=== PATIENT | female | born 1965 | race Caucasian/White ===

== ENCOUNTER → 2016-08-13 | Outpatient (CLI) | payer OTHER ==
[~2016-08-13] MED LIST: ARTIOIN OP; CHOL1CAP57 PO; ENOX1INJ11 SQ; FLUO10CA48 PO; JUICE PLUS PO; MULT-506 PO; PRED10TA PO; VALA1TAB2 PO; VITA400C15 PO; WARF5TAB90 PO
[2016-08-13 18:39] LABS: LYME DISEASE AB IGG NEG (NEG)
[2016-08-13 18:42] LABS: LYME DISEASE AB IGM NEG (NEG)
== END | disposition home or self-care (01) ==
LOC: C.LABBFT 15:27
PROVIDERS: ATTEND Nurse Practitioner
DX: T14.8 Other injury of unspecified body region (principal); W57.XXXA Bitten or stung by nonvenomous insect and other nonvenomous arthropods, initial encounter

== ENCOUNTER 2016-12-01 07:46 | Emergency (ER) | payer OTHER ==
[~2016-12-01] VITALS: Ht 167.6 cm; Wt 75.2 kg
[~2016-12-01 07:46] MED LIST changes: -ARTIOIN OP; -ENOX1INJ11 SQ; -FLUO10CA48 PO; -JUICE PLUS PO; -PRED10TA PO; -VALA1TAB2 PO; -WARF5TAB90 PO
[2016-12-01 07:48] VITALS: TEMP 36.9; Ht 167.6 cm; Wt 75.2 kg
--- NOTE | 2016-12-01 08:10 | EMERGENCY ROOM VISIT NOTE ---
History Report prepared by Nikia: Lulú Rasheed Under the Supervision of: Dr. Tom Valencia M.D. First contact with patient: 07:56 Chief Complaint: NEURO SYMPTOMS Stated Complaint: PAININ GLAND BEHIND RT EAR, PARALIZED RT SIDE FACE Nursing Triage Summary: Pt states yesterday noticed a lump behind right ear, woke up this morning and right side of face "was paralyzed. My mouth feels tingly, like it's asleep. I googled my sx and I think it's Ericson Palsy, but we are heading to a horse show and I wanted to make sure." History of Present Illness The patient is a 51 year old female who presents to the Emergency Room with complaints of sudden neurological symptoms beginning this morning. The patient reports that yesterday she noticed a lump behind her right ear and that this morning she woke up with the right side of her face tingling. The patient reports that she had tick bites that she recently had checked and was found to be negative for lyme disease. She denies having a headache, a sore throat, and weakness of her extremities. The patient also denies recent falls or head injuries. She reports that she has no active medical problems. Source of History: patient Onset: this morning Position: other (right side of face ) Quality: other (neurological symptoms ) Timing: other (sudden) Associated Symptoms: No headache, No sorethroat, No weakness Review of Systems See HPI for pertinent positives & negatives. A total of 10 systems reviewed and were otherwise negative. Past Medical & Surgical Medical Problems: (1) Bilateral breast implants Family History No pertinent family history stated. Social History Smoking Status: Never Smoker Marital Status: Housing Status: lives with family Current/Historical Medications Scheduled Artificial Tears Oph Oint (Lacri-Lube Sop Oph Oint), 0.25-0.5 INCH OP QID Prednisone (Prednisone), 10 MG PO DAILY Valacyclovir Hcl (Valtrex), 1,000 MG PO TID [Juice Plus], 2 CAP PO DAILY Allergies Coded Allergies: No Known Allergies (Unverified , 12/01/16) Physical Exam Vital Signs Date Time Temp Pulse Resp B/P (MAP) Pulse Ox O2 Delivery O2 Flow Rate FiO2 12/01/16 08:25 72 17 152/92 97 12/01/16 07:48 36.9 75 18 144/82 96 Room Air Physical Exam GENERAL: Patient is well appearing and in no acute distress. HEENT: No acute trauma, normocephalic atraumatic, mucous membranes moist, no nasal congestion, no scleral icterus.Slightly increased lymph node just below right ear. NECK: No stridor, no adenopathy, no meningismus, trachea is midline. LUNGS: No dyspnea. Clear to auscultation and equal bilaterally. No wheeze, no rhonchi. HEART: Regular rate and rhythm. No murmurs, rubs, gallops appreciated. ABDOMEN: Soft, nontender, bowel sounds positive, no masses appreciated, no peritonitis. BACK: No midline tenderness, no CVA tenderness EXTREMITIES: Normal motion all extremities, no cyanosis, no edema. NEUROLOGIC: Alert and oriented. Right facial paralysis, slightly able to overcome right upper face with voluntary movement thought significantly weaker than left. Unable to completely close right eye. SKIN: No rash, no jaundice, no diaphoresis. Medical Decision & Procedures Medications Administered Medications (Trade) Dose Ordered Sig/Yelena Route Start Time Stop Time Status Last Admin Dose Admin Prednisone (PredniSONE TAB) 60 mg NOW STAT PO 12/01/16 08:09 12/01/16 08:10 DC 12/01/16 08:23 60 MG Valacyclovir HCl (Valtrex Tab) 1,000 mg NOW ONCE PO 12/01/16 08:15 12/01/16 08:16 DC 12/01/16 08:23 1,000 MG Artificial Tears (Lacri-Lube Oph Oint) 1 appln NOW ONCE OP 12/01/16 08:15 12/01/16 08:16 DC 12/01/16 08:23 1 APPLN ED Course 0757: The patient was evaluated in room B4B. A complete history and physical exam was performed. 0809: Ordered Prednisone 60 mg PO. 0815: Ordered Artificial Tears 1 appln OP, Valtrex Tab 1,000 mg PO. 0823: Reevaluated the patient. Discussed results and discharge instructions: She verbalized understanding and agreement. The patient is ready for discharge. Medical Decision Differentials include: Londono's Palsy, stroke, herpetic cause/viral cause, Lyme disease, amongst others. 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 Notes just had lyme testing which was negative. Stable and breathing comfortably. No rash though given amount of deficit I feel that starting Valtrex, especially given how symptoms started in last 12 hours is reasonable. Will hold doxy and hold further lyme testing given recent negative testing and denies recent tick bites. She will also receive steroids. Unable to fully close eye thus reviewed importance of keeping moist and using patch and symptoms to monitor for in case of ulcer, etc. I suggested Optho eval but she notes she will be out of town over next few weeks on horse show. Reviewed symptoms requiring return. I do not feel this is CVA given both upper and lower face findings and her exam. I feel the node is likely reactive and is not a mass pressing on nerve, but did review returning if increase in size/pain. Medication Reconcilliation Current Medication List: was personally reviewed by me Blood Pressure Screening Patient's blood pressure: Elevated blood pressure Blood pressure disposition: Elevated BP felt to be situational Impression Primary Impression: Londono's palsy Scribe Attestation The scribe's documentation has been prepared under my direction and personally reviewed by me in its entirety. I confirm that the note above accurately reflects all work, treatment, procedures, and medical decision making performed by me. Departure Information Dispostion Home / Self-Care Prescriptions Artificial Tears Oph Oint (Lacri-Lube Sop Oph Oint) Oint 0.25-0.5 INCH OP QID, #1 TUBE TO THE AFFECTED EYE UP TO QID PRN Prov: Tom Valencia M.D. 12/01/16 Valacyclovir Hcl (VALTREX) 1 Gm Tab 1000 MG PO TID for 7 Days, #21 TAB Prov: Tom Valencia M.D. 12/01/16 Prednisone (Prednisone) 10 Mg Tab 10 MG PO DAILY, #45 TAB Take 6 tabs daily for 5 days, then decrease by one tab daily over next 5 days. Prov: Tom Valencia M.D. 12/01/16 Referrals No Doctor, Assigned (PCP) Forms HOME CARE DOCUMENTATION FORM, IMPORTANT VISIT INFORMATION Patient Instructions ED Ericson Palsy, My [facility]
[2016-12-01] MEDS ORDERED: PRED10TA PO (08:15)
[2016-12-01] MEDS ORDERED: VALA1TAB2 PO (08:15)
[2016-12-01] MEDS ORDERED: ARTIOIN OP (08:15)
[2016-12-01] MEDS ORDERED: ARTIFICIAL TEARS OP OINT 3.5 GM TUBE OP ONE (08:15)
[2016-12-01 08:25] VITALS: BP 152/92; PULSE 72; O2SAT 97
[2016-12-17] MEDS ORDERED: JUICE PLUS PO (08:17)
== END 2016-12-01 08:42 | disposition home or self-care (01) ==
LOC: C.EDB 07:49
DX: G51.0 Bell's palsy (principal); Z98.82 Breast implant status

== ENCOUNTER 2016-12-17 19:30 | Emergency (ER) | payer OTHER ==
[~2016-12-17] VITALS: Ht 168.9 cm; Wt 74.3 kg
[~2016-12-17 19:30] MED LIST changes: -ENOX1INJ11 SQ; -FLUO10CA48 PO; -WARF5TAB90 PO
[2016-12-17 19:42] VITALS: TEMP 36.8; Ht 168.9 cm; Wt 74.3 kg
[2016-12-17] MEDS ORDERED: ENOXAPARIN 1 MG/KG SQ STA (20:03)
[2016-12-17] MEDS ORDERED: WARFARIN SOD 5 MG TAB PO STA (20:03)
--- NOTE | 2016-12-17 20:04 | EMERGENCY ROOM VISIT NOTE ---
History Report prepared by Nikia: Harsha iRchardson Under the Supervision of: Dr. Philip Preston M.D. First contact with patient: 19:51 Chief Complaint: LEG PAIN,LEG INJURY Stated Complaint: L LEG THROMBUS History of Present Illness The patient is a 51 year old female who presents to the Emergency Room with complaints of left leg superficial thrombus. 2 weeks ago, the patient had an episode of Londono's Palsy that cleared up after a few days. She then traveled to [place] and back for a horse show. She then decided to get a checkup with her PCP afterward. Prior to this, she was having some left sided calf tenderness. Her PCP scheduled an US procedure that was positive for a thrombus in the leg. She has never had a blood clot before. She denies any other symptoms. Source of History: patient Onset: last week Position: leg (left) Symptom Intensity: Superficial Quality: other (Thrombus) Timing: constant Note: She has left calf tenderness. She denies any other symptoms. Review of Systems See HPI for pertinent positives & negatives. A total of 10 systems reviewed and were otherwise negative. Past Medical & Surgical Medical Problems: (1) Bilateral breast implants Family History Omitted secondary to the patient's pain. Social History Smoking Status: Never Smoker Smokeless Tobacco Use: No Drug Use: none Marital Status: Housing Status: lives with family Occupation Status: employed Current/Historical Medications Scheduled Artificial Tears Oph Oint (Lacri-Lube Sop Oph Oint), 0.25-0.5 INCH OP QID Enoxaparin Sodium (Lovenox), 80 MG SQ Q12 Fluoxetine (Prozac), 10 MG PO DAILY Warfarin Sodium (Coumadin), 5 MG PO DAILY [Juice Plus], 2 CAP PO DAILY Allergies Coded Allergies: No Known Allergies (Unverified , 12/01/16) Physical Exam Vital Signs Date Time Temp Pulse Resp B/P (MAP) Pulse Ox O2 Delivery O2 Flow Rate FiO2 12/17/16 21:12 76 17 141/85 97 12/17/16 19:42 36.8 60 18 164/95 98 Room Air Physical Exam GENERAL: Patient is a healthy-appearing well-nourished female HEAD: Normocephalic atraumatic EYES: Ocular movements intact pupils equal and react to light OROPHARYNX mucous membranes are moist no exudates present no erythema or edema present NECK: Supple no nuchal rigidity CHEST: Good equal expansion LUNGS: Clear and equal to auscultation CARDIAC: Normal S1 and S2 ABDOMEN: Soft nontender no guarding BACK: No CVA tenderness EXTREMITIES: No pain upon palpation normal muscle strength in all groups no clubbing cyanosis or edema NEURO: Patient is following commands and answering questions appropriately. Alert and oriented x3 Cranial Nerves 2-12 grossly intact Medical Decision & Procedures Laboratory Results Test 12/17/16 20:17 12/17/16 20:22 Prothrombin Time 9.9 SECONDS (9.0-12.0) Prothromb Time International Ratio 0.9 (0.9-1.1) Activated Partial Thromboplast Time 25.4 SECONDS (21.0-31.0) Partial Thromboplastin Ratio 1.0 Labs reviewed by ED physician. Medications Administered Medications (Trade) Dose Ordered Sig/Yelena Route Start Time Stop Time Status Last Admin Dose Admin Miscellaneous (Lovenox Teaching Kit) 1 ea PRN PRN N/A 12/17/16 20:15 12/17/16 21:37 DC 12/17/16 21:00 1 EA Warfarin Sodium (Coumadin Tab) 10 mg NOW STAT PO 12/17/16 20:03 12/17/16 20:04 DC 12/17/16 21:00 10 MG Enoxaparin Sodium (Lovenox Inj) 70 mg NOW ONCE SQ 12/17/16 20:15 12/17/16 20:16 DC 12/17/16 20:59 70 MG ED Course 1950: Past medical records reviewed. The patient was evaluated in room C12. A complete history and physical examination was performed. 2002: Ordered Coumadin Tab 10 mg PO, Enoxaparin Sodium 1 ea SQ 2015: Lovenox Inj 70 mg SQ 0: Upon reexamination the patient is resting. I discussed results and treatment plan with the patient. She verbalizes agreement and understanding. The patient is ready for discharge. Medical Decision Differential diagnosis: Etiologies such as DVT, musculoskeletal, infection, joint effusion, trauma, lymphedema, idiopathic, CHF, as well as others were entertained. This is a 51-year-old female that presents emergency department with an extensive superficial venous thrombosis. Because this is so large in size and using shared medical decision making with both the patient as well as the patient's primary care physician, the decision was made place the patient on Lovenox as well as Coumadin. In addition the patient also has a upcoming trip to [place] and I feel that the patient should be anticoagulated. A hypercoagulability workup was initiated. The patient will follow-up for these results with her primary care physician. She will be placed on Lovenox twice a day and started on Coumadin. Patient will follow-up with her primary care physician for her Coumadin levels. Medication Reconcilliation Current Medication List: was personally reviewed by me Blood Pressure Screening Patient's blood pressure: Elevated blood pressure Blood pressure disposition: Referred to PCP Impression Primary Impression: Superficial vein thrombosis Scribe Attestation The scribe's documentation has been prepared under my direction and personally reviewed by me in its entirety. I confirm that the note above accurately reflects all work, treatment, procedures, and medical decision making performed by me. Departure Information Dispostion Home / Self-Care Prescriptions Warfarin Sodium (COUMADIN) 5 Mg Tab 5 MG PO DAILY for 14 Days, #14 TAB Prov: Philip Preston MD 12/17/16 Enoxaparin Sodium (LOVENOX) 80 Mg/0.8 Ml Inj 80 MG SQ Q12 for 5 Days, #10 SYR Prov: Philip Preston MD 12/17/16 Referrals No Doctor, Assigned (PCP) Forms HOME CARE DOCUMENTATION FORM, IMPORTANT VISIT INFORMATION, School Instructions, Work Instructions Patient Instructions Coumadin, ED Phlebitis Superficial, Enoxaparin injection, My [facility] Additional Instructions Need follow up with PCP for INR (Coumadin) levels You were found to have an elevated blood pressure today (>120 sytolic or >90 diastolic). Per medicare guidelines, you need to follow up with this blood pressure screening with your Primary Care Physician (PCP). For a new PCP call [phone]. Take 600 mg Ibuprofen every 6 hours You have been examined and treated today on an emergency basis only. This is not a substitute for, or an effort to provide, complete comprehensive medical care. It is impossible to recognize and treat all injuries or illnesses in a single emergency department visit. It is therefore important that you follow up closely with your PCP. Call as soon as possible for an appointment. Thank you for your time and consideration. I look forward to speaking with you again soon. Please don't hesitate to call us if you have any questions.
[2016-12-17] MEDS ORDERED: LOVENOX TEACHING KIT PRN (20:15)
[2016-12-17] MEDS ORDERED: ENOXAPARIN 80 MG/0.8 ML SYR SQ ONE (20:15)
[2016-12-17] MEDS ORDERED: ENOX1INJ11 SQ (20:17)
[2016-12-17] MEDS ORDERED: WARF5TAB90 PO (20:17)
[2016-12-17 20:56] LABS: INR 0.9 (0.9-1.1); PROTHROMBIN TIME (PATIENT) 9.9 SECONDS (9.0-12.0)
[2016-12-17 21:12] VITALS: BP 141/85; PULSE 76; O2SAT 97
[2016-12-17] MEDS ORDERED: FLUO10CA48 PO (21:44)
[2016-12-22 16:33] LABS: ANTITHROMBINIII ACTIVITY** 97 % activity (80-120); B2 GLYCOPROTEIN IGA <9 SAU (<=20); B2 GLYCOPROTEIN IGG <9 SGU (<=20); B2 GLYCOPROTEIN IGM <9 SMU (<=20); LUPUS ANTICOAGULANT** TC36573X Negative (Negative); PROTEIN C ACTIVITY** TC 1777X 82 % (70-180); PROTEIN S ACT(FUNCT)**1779X 88 % (60-140)
== END 2016-12-17 21:13 | disposition home or self-care (01) ==
LOC: C.EDB 19:31 → C.EDC 21:13
DX: I82.812 Embolism and thrombosis of superficial veins of left lower extremity (principal); Z79.899 Other long term (current) drug therapy; Z98.82 Breast implant status

== ENCOUNTER → 2016-12-17 | Outpatient (CLI) | payer OTHER ==
[~2016-12-17] MED LIST changes: +ARTIOIN OP; -CHOL1CAP57 PO; +ENOX1INJ11 SQ; +FLUO10CA48 PO; +JUICE PLUS PO; -MULT-506 PO; +PRED10TA PO; -VITA400C15 PO; +WARF5TAB90 PO
[2016-12-17 18:42] LABS: BASO % 0.4 %; BASO ABS # 0.03 K/uL (0-0.2); COMPLETE YES; EOS % 2.5 %; HEMATOCRIT 41.7 % (37-47); IG% 0.4 %; LYMPH % 28.4 %; LYMPH ABS # 2.25 K/uL (1.2-3.4); MEAN CELL VOLUME 92.9 fL (80-100); MEAN CORPUSCULAR HEMOGLOBIN 32.3 pg (25-34); MEAN CORPUSCULAR HGB CONC 34.8 g/dl (32-36); MEAN PLATELET VOLUME 9.6 fL (7.4-10.4); MONO % 8.7 %; NEUT % 59.6 %; PLATELET COUNT 235 K/uL (130-400); RED BLOOD COUNT 4.49 M/uL (4.2-5.4); WHITE BLOOD COUNT 7.92 K/uL (4.8-10.8)
[2016-12-17 19:06] LABS: ALT/SGPT 14 U/L (12-78); AST/SGOT 8 U/L (15-37); BLOOD UREA NITROGEN 16 mg/dl (7-18); BUN/CREATININE RATIO 18.9 (10-20); CALCIUM 8.6 mg/dl (8.5-10.1); CARBON DIOXIDE 29 mmol/L (21-32); CHLORIDE 108 mmol/L (98-107); CREATININE 0.84 mg/dl (0.60-1.20); GLUCOSE 86 mg/dl (70-99); SODIUM 140 mmol/L (136-145)
[2016-12-17 19:07] LABS: ALB/GLOB RATIO 0.8 (0.9-2); ALKALINE PHOSPHATASE 49 U/L (45-117); CHOLESTEROL 177 mg/dl (0-200); CHOLESTEROL/HDL RATIO 2.2; HDL CHOLESTEROL 79 mg/dl; LDL CHOLESTEROL CALCULATED 66 mg/dl; TRIGLYCERIDES 159 mg/dl (0-150); VERY LOW DENSITY LIPOPROT CALC 32 mg/dl
--- NOTE | 2016-12-17 19:18 | DIAGNOSTIC IMAGING REPORT ---
BILATERAL LOWER EXTREMITY VENOUS DOPPLER HISTORY: M79.662 Tenderness of left calf COMPARISON STUDY: None. FINDINGS: There is normal compressibility, flow, and augmentation within the left lower extremity deep venous system. There is occlusive thrombus within the left greater saphenous vein extending from the mid thigh to the proximal calf. Additionally, thrombus is seen within the superficial vein within the posterior calf suggesting the lesser saphenous vein. The common femoral greater saphenous vein confluence is patent. IMPRESSION: 1. No sonographic evidence of deep venous thrombosis within the left lower extremity. 2. Superficial venous thrombosis involves the greater saphenous vein extending from the mid thigh to the calf. Additional thrombus is seen within the lesser saphenous vein. Electronically signed by: Lamonte Silverman M.D. 12/17/2016 7:17 PM Dictated Date/Time: 12/17/2016 7:14 PM
[2016-12-17 20:31] LABS: LYME DISEASE AB IGG NEG (NEG)
[2016-12-17 20:41] LABS: LYME DISEASE AB IGM EQUIVOCAL (NEG)
[2016-12-22 11:08] LABS: 18KDIGG BAND NONREACTIVE (NONREACTIVE); 23KDIGG BAND NONREACTIVE (NONREACTIVE); 23KDIGM BAND REACTIVE (NONREACTIVE); 28KDIGG BAND NONREACTIVE (NONREACTIVE); 30KDIGG BAND NONREACTIVE (NONREACTIVE); 39KDIGG BAND NONREACTIVE (NONREACTIVE); 39KDIGM BAND NONREACTIVE (NONREACTIVE); 41KDIGG BAND REACTIVE (NONREACTIVE); 41KDIGM BAND REACTIVE (NONREACTIVE); 45KDIGG BAND NONREACTIVE (NONREACTIVE); 58KDIGG BAND NONREACTIVE (NONREACTIVE); 66KDIGG BAND REACTIVE (NONREACTIVE); 93KDIGG BAND NONREACTIVE (NONREACTIVE)
== END | disposition home or self-care (01) ==
LOC: C.ULTR 17:27
PROVIDERS: ATTEND Nurse Practitioner
DX: M79.662 Pain in left lower leg (principal); G51.0 Bell's palsy; E78.5 Hyperlipidemia, unspecified; I82.812 Embolism and thrombosis of superficial veins of left lower extremity

== ENCOUNTER → 2017-01-28 | Outpatient (CLI) | payer OTHER ==
[~2017-01-28] MED LIST changes: +FLUO10CA48 PO; -PRED10TA PO
--- NOTE | 2017-01-28 16:30 | DIAGNOSTIC IMAGING REPORT ---
LEFT LOWER EXTREMITY VENOUS DOPPLER HISTORY: 80.00 Superficial thrombophlebitis of leg Please schedule to be d COMPARISON STUDY: Left leg venous Doppler 12/17/2016. FINDINGS: There is normal compressibility, flow, and augmentation within the left lower extremity deep venous system. There is again noted thrombus throughout the majority of the left greater saphenous vein consistent with a superficial thrombus. This is stable slightly improved compared the prior study. IMPRESSION: No DVT within the left lower extremity. Stable to slightly improved superficial thrombus throughout the majority of the left greater saphenous vein. Electronically signed by: Alcides Duque M.D. 01/28/2017 4:29 PM Dictated Date/Time: 01/28/2017 4:27 PM
== END | disposition home or self-care (01) ==
LOC: C.ULTR 15:33
PROVIDERS: ATTEND Nurse Practitioner
DX: I82.812 Embolism and thrombosis of superficial veins of left lower extremity (principal)

== ENCOUNTER → 2017-03-29 | Outpatient (CLI) | payer OTHER ==
--- NOTE | 2017-04-01 07:49 | MAMMOGRAPHY REPORT ---
BILATERAL DIGITAL SCREENING MAMMOGRAM WITH CAD: 03/29/2017 CLINICAL HISTORY: Patient presents for routine screening. S/P bilateral augmentation. TECHNIQUE: Current study was also evaluated with a Computer Aided Detection (CAD) system. Bilateral CC and MLO views including implant displaced views were obtained. COMPARISON: Comparison is made to exams dated: 03/28/2016 mammogram, 03/25/2015 mammogram, 03/24/2014 m ammogram, 03/23/2013 mammogram, 01/28/2012 mammogram, and 04/17/2011 mammogram - [facility]. BREAST COMPOSITION: The tissue of both breasts is heterogeneously dense, which may obscure small mas ses. FINDINGS: No suspicious masses, calcifications, or areas of architectural distortion are noted in ei ther breast. There has been no significant interval change compared to prior exams. Bilateral subpec poli saline implants are intact. IMPRESSION: ACR BI-RADS CATEGORY 2: BENIGN There is no mammographic evidence of malignancy. A 1 year screening mammogram is recommended. The pa tient will receive written notification of the results. Approximately 10% of breast cancers are not detected with mammography. A negative mammographic report should not delay biopsy if a clinically suggestive mass is present. Trupti Prieto M.D. ah/:03/29/2017 15:12:32 Licensing Worker: Loan KNIGHTR, M, [facility] letter sent: Normal 1/2 BI-RADS Code: ACR BI-RADS Category 2: Benign
== END | disposition home or self-care (01) ==
LOC: C.MAMM 14:32
PROVIDERS: ATTEND Obstetrics & Gynecology
DX: Z12.31 Encounter for screening mammogram for malignant neoplasm of breast (principal); Z98.82 Breast implant status

== ENCOUNTER 2019-02-19 08:37 | Observation (INO) ==
--- NOTE | 2019-02-19 10:09 | XRay Report ---
XR chest 1V portable CLINICAL HISTORY: Dyspnea COMPARISON STUDY: Chest radiograph February 14, 2019. FINDINGS: Lung volumes are normal. Lungs are clear. There is no pneumothorax or pleural effusion. Car diac size is normal. Mediastinal contours are normal. There is no evidence for pulmonary edema. Incid ental note is made of multiple old, healed left rib fractures. IMPRESSION: No acute cardiopulmonary findings. Electronically signed by: Mahendra Sevilla M.D. 02/19/2019 10:08 AM
[2019-02-19 10:47] LABS: Basophils # (auto) 0.02 K/uL (0-0.2); Basophils % (auto) 0.3 %; Eosinophils # (auto) 0.02 K/uL (0-0.5); Eosinophils % (auto) 0.3 %; Hemoglobin 15.5 g/dL (12.0-16.0); Immature Granulocytes # (auto) 0.01 K/uL (0.00-0.02); Immature Granulocytes % (auto) 0.2 %; Lymphocytes # (auto) 1.29 K/uL (1.2-3.4); Lymphocytes % (auto) 22.2 %; Mean Corpuscular Hemoglobin 32.4 pg (25-34); Mean Corpuscular Hgb Conc 34.4 g/dL (32-36); Mean Corpuscular Volume 94.1 fL (80-100); Mean Platelet Volume 9.4 fL (7.4-10.4); Monocytes # (auto) 0.52 K/uL (0.11-0.59); Neutrophils # (auto) 3.95 K/uL (1.4-6.5); Platelet Count 315 K/uL (130-400); RDW Coefficient of Variation 12.6 % (11.5-14.5); RDW Standard Deviation 43.3 fL (36.4-46.3); Red Blood Count 4.78 M/uL (4.2-5.4); White Blood Count 5.81 K/uL (4.8-10.8)
[2019-02-19 10:57] LABS: Alanine Aminotransferase 14 U/L (12-78); Aspartate Aminotransferase 8 U/L (15-37); BUN Creatinine Ratio 10.3 (10-20); Blood Urea Nitrogen 9 mg/dl (7-18); Calcium 9.5 mg/dl (8.5-10.1); Carbon Dioxide 31 mmol/L (21-32); Chloride 104 mmol/L (98-107); Creatinine Clr Calc Pharmacy 73.4 ml/min; Est GFR (Non-African American) 71.6; Glucose 117 mg/dl (70-99); Magnesium 2.3 mg/dl (1.8-2.4); Potassium 3.9 mmol/L (3.5-5.1); Sodium 138 mmol/L (136-145)
[2019-02-19 11:02] LABS: Alkaline Phosphatase 77 U/L (45-117); Bilirubin,Total 0.6 mg/dl (0.2-1); Globulin 4.2 gm/dl (2.5-4.0); Phosphorus 2.1 mg/dl (2.5-4.9); Total Protein 8.2 gm/dl (6.4-8.2); Troponin I < 0.015 ng/ml (0-0.045)
[2019-02-19 11:05] LABS: Follicle Stimulating Hormone 71.46 IU/L; Luteinizing Hormone 58.61 IU/L
[2019-02-19] MEDS ORDERED: LORazepam 0.5 MG TAB PO STA (12:10)
--- NOTE | 2019-02-19 12:46 | Emergency Department Note ---
Entered by Pepito Yip acting as a scribe for Fabiola Douglass DO History of Present Illness General Chief complaint: Shortness of Breath/Dyspnea Stated complaint: SOB, TINGLING Time Seen by Provider: 02/19/19 09:10 Source: patient History of Present Illness Provider complaint: Shortness of breath Onset (ago): month(s) 2 Location: chest Severity: similar to prior episodes Pain Consistency: + intermittent Quality: + other (Tingling) Associated symptoms: + denies other symptoms (Lightheadedness), + shortness of b reath and + weakness; no chest pain The patient is a 54 year old female who presents to the Emergency Room with complaints of intermittent episodes of dizziness that started about 2 months ago. The patient states that during the spells she gets shaky and short of breath. She also endorses some tingling throughout her body and generalized weakness, but denies any falls or trauma. The patient also denies any chest pain or lightheadedness during the incident. The patient reports that since the onset of these episodes she has been periodically waking up in the middle of the night with similar symptoms. The patient adds that yesterday her had shoulder surgery which she was very anxious about. The patient also mentioned that for the past month she has been self-medicating each night with Whiskey so that she can sleep. The patient is adamant that she does not drink a lot each night. The patient also has some passive suicidal ideation, stating in triage that if she gets discharged today she does not know how long she can live like this. The patient has does not currently have a therapist. Patient states she does travel a lot. Home Medications Home Medications Medication Instructions Recorded Confirmed Type cetirizine [Zyrtec] 10 mg PO DAILY PRN 02/14/19 02/19/19 History fluoxetine 10 mg PO QAM 02/19/19 02/19/19 History Allergies Allergy/AdvReac Type Severity Reaction Status Date / Time No Known Allergies Allergy Unverified 02/19/19 09:18 Past Med/Surg History Medical History Collapsed lung (Resolved) Dyslipidemia Depression with anxiety Seasonal allergies Bilateral breast implants (Resolved 07/15/12) Family History Other No pertinent family history in first degree relatives Social History Preferred Language: Sinhala Communication Ability: Effective 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 and A total of 10 systems reviewed and were otherwise negative Physical Exam Vital Signs Vital Signs - 24 hr 02/19/19 08:39 02/19/19 08:56 02/19/19 10:00 Temperature 98.1 F Temperature Source Oral Sepsis Recent Fever Within 48 Hours No Sepsis Action Taken by Nursing No Action Required Pulse Rate 83 82 Pulse Rate [Apical] 82 Pulse Rate [Exercises] Pulse Rate [Recovery] Pulse Rate [Resting] Pulse Rate from SpO2 Sensor Pulse Rhythm Regular Regular Pulse Rhythm [Apical] Regular Pulse Strength Normal Pulse Strength [Apical] Normal Respiratory Rate 20 20 Respiratory Rate [Exercises] Respiratory Rate [Recovery] Respiratory Rate [Resting] Respiratory Effort / Characteristics Non-Labored Spontaneous Non-Labored Spontaneous Non-Labored Spontaneous Respiratory Depth Normal Normal Normal Respiratory Pattern Regular Regular Regular Blood Pressure 140/74 Blood Pressure [Right Arm] 143/91 H Blood Pressure Mean 96 Blood Pressure Mean [Right Arm] 108 Blood Pressure Position Sitting Blood Pressure Position [Right Arm] Sitting Pulse Oximetry 99 97 Pulse Oximetry [Exercises] Pulse Oximetry [Recovery] Pulse Oximetry [Resting] Oxygen Delivery Method Room Air Room Air Room Air 02/19/19 10:32 02/19/19 11:00 02/19/19 11:30 Temperature Temperature Source Sepsis Recent Fever Within 48 Hours Sepsis Action Taken by Nursing Pulse Rate 91 H 72 Pulse Rate [Apical] 85 Pulse Rate [Exercises] Pulse Rate [Recovery] Pulse Rate [Resting] Pulse Rate from SpO2 Sensor 72 Pulse Rhythm Pulse Rhythm [Apical] Regular Pulse Strength Pulse Strength [Apical] Normal Respiratory Rate 20 17 17 Respiratory Rate [Exercises] Respiratory Rate [Recovery] Respiratory Rate [Resting] Respiratory Effort / Characteristics Non-Labored Spontaneous Respiratory Depth Normal Respiratory Pattern Regular Blood Pressure 151/96 H 139/89 Blood Pressure [Right Arm] 134/79 Blood Pressure Mean 114 105 Blood Pressure Mean [Right Arm] 97 Blood Pressure Position Blood Pressure Position [Right Arm] Sitting Pulse Oximetry 97 96 Pulse Oximetry [Exercises] Pulse Oximetry [Recovery] Pulse Oximetry [Resting] Oxygen Delivery Method Room Air Room Air 02/19/19 12:20 02/19/19 12:25 02/19/19 12:30 Temperature Temperature Source Sepsis Recent Fever Within 48 Hours Sepsis Action Taken by Nursing Pulse Rate 72 67 Pulse Rate [Apical] Pulse Rate [Exercises] 126 H Pulse Rate [Recovery] 85 Pulse Rate [Resting] 92 H Pulse Rate from SpO2 Sensor 72 Pulse Rhythm Pulse Rhythm [Apical] Pulse Strength Pulse Strength [Apical] Respiratory Rate 17 14 Respiratory Rate [Exercises] 30 H Respiratory Rate [Recovery] 22 Respiratory Rate [Resting] 18 Respiratory Effort / Characteristics Respiratory Depth Respiratory Pattern Blood Pressure 145/83 H 114/81 Blood Pressure [Right Arm] Blood Pressure Mean 103 92 Blood Pressure Mean [Right Arm] Blood Pressure Position Blood Pressure Position [Right Arm] Pulse Oximetry 97 97 Pulse Oximetry [Exercises] 85 L Pulse Oximetry [Recovery] 99 Pulse Oximetry [Resting] 95 Oxygen Delivery Method Room Air Room Air Room Air GENERAL: alert, anxious appearing, well nourished, no distress, non-toxic EYE EXAM: normal conjunctiva, PERRL and EOM's grossly intact OROPHARYNX: no exudate, no erythema, lips, buccal mucosa, and tongue normal and mucous membranes are moist NECK: supple, no nuchal rigidity, no adenopathy, non-tender LUNGS: Clear to auscultation. Normal chest wall mechanics, no w/r/r HEART: no murmurs, S1 normal and S2 normal ABDOMEN: abdomen soft, non-tender, normo-active bowel sounds, no masses, no rebound or guarding. BACK: Back is symmetrical on inspection and there is no deformity, no midline tenderness, no CVA tenderness. SKIN: no rashes and no bruising UPPER EXTREMITIES: upper extremities are grossly normal. FROM, nml pulses b/l. LOWER EXTREMITIES: No pitting edema. FROM, nml pulses b/l. NEURO EXAM: Normal sensorium, cranial nerves II-XII grossly intact, normal speech, no gross weakness of arms, no gross weakness of legs. Course 0915: Past medical records reviewed. The patient was evaluated in room B07 by the resident Dr. Givens, and a complete history and physical examination were performed. I then performed my own assessment of the patient. 1103: I reevaluated and updated the patient on results. I also spoke to the psych vocational case manager who is going to evaluate the patient. 1205: Patient here markedly dyspneic with exertion, oxygen saturations dropped to 84% and patient became acutely tachycardic. I reassessed the patient and she is resting now comfortably in bed. We discussed the different treatment options and she agreed to stay. 1245: I spoke to Dr. Lashae Sanchez [facility] Hospitalist about the patient's case. He is going to accept the patient for further evaluation. Consultations Consultation #1: I spoke to Dr. Bhardwaj [facility] Hospitalist about the patient's case. He is going to accept the patient for further evaluation. Time: 12:45 Administered Medications Enoxaparin Sodium (Lovenox) 40 mg SQ Q24H [facility] Stop: 03/21/19 15:59 Last Admin: 02/20/19 16:53 Dose: Not Given Documented by: [id number] Admin: 02/19/19 15:55 Dose: Not Given Documented by: [id number] Fluoxetine HCl (Prozac) 10 mg PO QAM [facility] Stop: 03/22/19 08:59 Last Admin: 02/20/19 07:56 Dose: 10 mg Documented by: [id number] Ioversol (Optiray 320 125ml) 120 ml IV ONCE PRN PRN Reason: Interaction Checking Stop: 02/23/19 14:28 Last Admin: 02/19/19 14:29 Dose: 120 ml Documented by: [id number] Lorazepam (Ativan) 0.5 mg PO Q4H PRN PRN Reason: Anxiety Stop: 03/21/19 17:20 Last Admin: 02/20/19 17:34 Dose: 0.5 mg Documented by: [id number] Admin: 02/20/19 13:31 Dose: 0.5 mg Documented by: [id number] Admin: 02/20/19 09:08 Dose: 0.5 mg Documented by: [id number] Admin: 02/20/19 04:21 Dose: 0.5 mg Documented by: [id number] Admin: 02/19/19 23:10 Dose: 0.5 mg Documented by: [id number] Admin: 02/19/19 18:06 Dose: 0.5 mg Documented by: [id number] Discontinued Medications Influenza Virus Vaccine Quadrival (Flucelvax Quad Vaccine) 0.5 ml IM .ONCE ONE Stop: 02/19/19 15:16 Last Admin: 02/19/19 20:20 Dose: 0.5 ml Documented by: [id number] Lorazepam (Ativan) 0.5 mg PO NOW STA Stop: 02/19/19 12:11 Last Admin: 02/19/19 12:27 Dose: 0.5 mg Documented by: [id number] Medical Decision Making Differential Diagnosis Differential diagnoses includes but is not limited to pneumonia, bronchitis, COPD/Asthma exacerbation, pneumothorax, pulmonary embolism, congestive heart failure, acute coronary syndrome, amongst others. Medical Records Attestation: I reviewed the patient's medical records. Home Medications Current Medication List: was personally reviewed by me Laboratory Data Attestation: I reviewed the patient's lab results. Result diagrams: 02/19/19 08:55 02/19/19 08:55 Lab Results 02/19/19 02/19/19 02/19/19 Range/Units 08:55 08:55 08:55 WBC 5.81 (4.8-10.8) K/uL RBC 4.78 (4.2-5.4) M/uL Hgb 15.5 (12.0-16.0) g/dL Hct 45.0 (37-47) % MCV 94.1 (80-100) fL MCH 32.4 (25-34) pg MCHC 34.4 (32-36) g/dL RDW Std Deviation 43.3 (36.4-46.3) fL RDW Coeff of Keegan 12.6 (11.5-14.5) % Plt Count 315 (130-400) K/uL MPV 9.4 (7.4-10.4) fL Immature Gran % (Auto) 0.2 % Neut % (Auto) 68.0 % Lymph % (Auto) 22.2 % Adair % (Auto) 9.0 % Eos % (Auto) 0.3 % Baso % (Auto) 0.3 % Immature Gran # (Auto) 0.01 (0.00-0.02) K/uL Neut # (Auto) 3.95 (1.4-6.5) K/uL Lymph # (Auto) 1.29 (1.2-3.4) K/uL Adair # (Auto) 0.52 (0.11-0.59) K/uL Eos # (Auto) 0.02 (0-0.5) K/uL Baso # (Auto) 0.02 (0-0.2) K/uL Sodium Cancelled Potassium Cancelled Chloride Cancelled Carbon Dioxide Cancelled Anion Gap Cancelled BUN Cancelled Creatinine Cancelled Est Cr Clr Drug Dosing Cancelled Est GFR ( Amer) Cancelled Est GFR (Non-Af Amer) Cancelled BUN/Creatinine Ratio Cancelled Glucose Cancelled Calcium Cancelled Phosphorus Cancelled Magnesium Cancelled Total Bilirubin Cancelled AST Cancelled ALT Cancelled Alkaline Phosphatase Cancelled Troponin I (0-0.045) ng/ml Total Protein Cancelled Albumin Cancelled Globulin Cancelled Albumin/Globulin Ratio Cancelled FSH IU/L Luteinizing Hormone IU/L 02/19/19 02/19/19 Range/Units 08:55 08:55 WBC (4.8-10.8) K/uL RBC (4.2-5.4) M/uL Hgb (12.0-16.0) g/dL Hct (37-47) % MCV (80-100) fL MCH (25-34) pg MCHC (32-36) g/dL RDW Std Deviation (36.4-46.3) fL RDW Coeff of Keegan (11.5-14.5) % Plt Count (130-400) K/uL MPV (7.4-10.4) fL Immature Gran % (Auto) % Neut % (Auto) % Lymph % (Auto) % Adair % (Auto) % Eos % (Auto) % Baso % (Auto) % Immature Gran # (Auto) (0.00-0.02) K/uL Neut # (Auto) (1.4-6.5) K/uL Lymph # (Auto) (1.2-3.4) K/uL Adair # (Auto) (0.11-0.59) K/uL Eos # (Auto) (0-0.5) K/uL Baso # (Auto) (0-0.2) K/uL Sodium 138 Potassium 3.9 Chloride 104 Carbon Dioxide 31 Anion Gap 3.0 BUN 9 Creatinine 0.92 Est Cr Clr Drug Dosing 73.4 Est GFR ( Amer) 83.0 Est GFR (Non-Af Amer) 71.6 BUN/Creatinine Ratio 10.3 Glucose 117 H Calcium 9.5 Phosphorus 2.1 L Magnesium 2.3 Total Bilirubin 0.6 AST 8 L ALT 14 Alkaline Phosphatase 77 Troponin I < 0.015 (0-0.045) ng/ml Total Protein 8.2 Albumin 4.0 Globulin 4.2 H Albumin/Globulin Ratio 1.0 FSH 71.46 IU/L Luteinizing Hormone 58.61 IU/L Imaging Data Radiologist's Impression: Radiology results as stated below per my review and the radiologist's interpretation: XR chest 1V portable CLINICAL HISTORY: Dyspnea COMPARISON STUDY: Chest radiograph February 14, 2019. FINDINGS: Lung volumes are normal. Lungs are clear. There is no pneumothorax or pleural effusion. Cardiac size is normal. Mediastinal contours are normal. There is no evidence for pulmonary edema. Incidental note is made of multiple old, healed left rib fractures. IMPRESSION: No acute cardiopulmonary findings. Electronically signed by: Mahendra Sevilla M.D. 02/19/2019 10:08 AM ECG Data Attestation: I personally reviewed and interpreted this ECG as follows: Indication: SOB/dyspnea Rate (beats per minute): 74 Rhythm: normal sinus ECG Dudley: Normal ECG ST segments: Normal ST segments ECG Findings: Other (Normal intervals) Blood Pressure Blood Pressure Findings: Elevated blood pressure Blood Pressure Disposition: further management by hospitalist MDM Narrative Patient here well-appearing despite complaints. Unclear etiology of her dyspnea and anxiety. Patient was hemodynamically stable and labs reassuring. I did review her visit from over the weekend which was reassuring also. Concern given patient's worsening symptoms and upon ambulatory trial pronounced tachycardia, hypoxia, and increased work of breathing. Patient agreement with plan for additional inpatient evaluation. Case discussed with hospitalist for additional evaluation and treatment. No overt risk factors for ACS, no clinical exam findings for CHF. I do not suspect occult infectious etiology. I do not suspect other vascular pathology. Impression & Plan Acute dyspnea, Hypoxia, Lightheadedness Discharge Plan Visit Data *Final* Discharge Date/Time: 02/19/19 13:44 Chief Complaint: Shortness of Breath/Dyspnea Stated Complaint: SOB, TINGLING ED Provider: Fabiola Douglass ED Midlevel Provider: Navdeep Givens Discharge Problem: Acute dyspnea, Hypoxia, Lightheadedness Patient Disposition: Admitted As Inpatient Discharge Instructions Interventions: ED Discharge Assessment Last Done: 02/19/19 13:44 The scribe's documentation has been prepared under my direction and personally reviewed by me in its entirety. I confirm that the note above accurately reflects all work, treatment, procedures, and medical decision making performed by me.
--- NOTE | 2019-02-19 13:09 | History & Physical Report ---
Date of Service February 19, 2019 Assessment & Plan (1) Acute dyspnea: Check echocardiogram. Monitor on telemetry floor. Appears to be secondary to anxiety. Does not appear to be any cardiac or pulmonary etiology. (2) Lightheadedness: Check orthostatics (3) Hypoxia: Monitor pulse ox closely. (4) Dizziness: (5) Depression with anxiety: Continue Prozac. We will add Ativan PRN basis. Consider psychiatric consultation if symptoms does not improve. Present on Admission?: Yes History of Present Illness Chief Complaint: Anxiety and shortness of breath and dizzy Primary Care Provider: MILTON Reza The patient is 54 year old female who presents to the Emergency Room with complaints of intermittent episodes of dizziness that started about 2 months ago. The patient states that during the spells she gets shaky and short of breath. She also endorses some tingling throughout her body and generalized weakness, but denies any falls or trauma. The patient also denies any chest pain or lightheadedness during the incident. The patient reports that since the onset of these episodes she has been periodically waking up in the middle of the night with similar symptoms. The patient adds that yesterday her had shoulder surgery which she was very anxious about. The patient also mentioned that for the past month she has been self-medicating each night with Whiskey so that she can sleep. The patient is adamant that she does not drink a lot each night. The patient also has some passive suicidal ideation, stating in triage that if she gets discharged today she does not know how long she can live like this. The patient has does not currently have a therapist. Her pulse ox dropped to 84% in the emergency room after she stood up, she became dyspneic. The patient was earlier here few days back in the ER with similar complaints and her work-up was within normal limits. She will be admitted under observation for further evaluation and management. Home Medications Allergies Allergy/AdvReac Type Severity Reaction Status Date / Time No Known Allergies Allergy Unverified 02/19/19 09:18 Home Medications Home Medications Medication Instructions Recorded Confirmed Type cetirizine [Zyrtec] 10 mg PO DAILY PRN 02/14/19 02/19/19 History fluoxetine 10 mg PO QAM 02/19/19 02/19/19 History Past Med/Surg History Medical History Collapsed lung (Resolved) Dyslipidemia Depression with anxiety Seasonal allergies Bilateral breast implants (Resolved 07/15/12) Family History Other No pertinent family history in first degree relatives Social History Preferred Language: Setswana marital status: single current occupational status: unemployed Feels Safe at Home: Yes Smoking Status: Never smoker Review of Systems Review of Systems: All systems reviewed & are unremarkable except as noted in HPI & below Physical Exam Physical Exam: GENERAL : No acute distress EYES: No icterus, gaze conjugate NOSE: No evidence of epistaxis MOUTH: No lesions or candidiasis, mucosa moist NECK: Supple LUNGS: CTA B/L, no wheezes, rales or rhonchi HEART: Regular, rate controlled ABDOMEN: Soft, NT, ND, BS Present EXTREMITIES: No LE edema, pedal pulses intact NEURO: A&OX3 Patient appears to be very anxious Results & Data Vital Signs (Past 12 Hours) Vital Signs Temp Pulse Pulse Pulse Pulse Pulse Resp 02/19/19 12:30 67 14 02/19/19 12:25 126 H 85 92 H 02/19/19 12:20 72 17 02/19/19 11:30 72 17 02/19/19 11:00 91 H 17 02/19/19 10:32 85 20 02/19/19 10:00 82 82 20 02/19/19 08:39 98.1 F 83 20 Resp Resp Resp BP BP Pulse Ox Pulse Ox 02/19/19 12:30 114/81 97 02/19/19 12:25 30 H 22 18 85 L 02/19/19 12:20 145/83 H 97 02/19/19 11:30 139/89 96 02/19/19 11:00 151/96 H 02/19/19 10:32 134/79 97 02/19/19 10:00 143/91 H 97 02/19/19 08:39 140/74 99 Pulse Ox Pulse Ox 02/19/19 12:30 02/19/19 12:25 99 95 02/19/19 12:20 02/19/19 11:30 02/19/19 11:00 02/19/19 10:32 02/19/19 10:00 02/19/19 08:39 Laboratory Results 02/19/19 08:55 02/19/19 08:55 Diagnostic Findings XR chest 1V portable CLINICAL HISTORY: Dyspnea COMPARISON STUDY: Chest radiograph February 14, 2019. FINDINGS: Lung volumes are normal. Lungs are clear. There is no pneumothorax or pleural effusion. Cardiac size is normal. Mediastinal contours are normal. There is no evidence for pulmonary edema. Incidental note is made of multiple old, healed left rib fractures. IMPRESSION: No acute cardiopulmonary findings. Code Status & VTE Plan VTE Prophylaxis Plan VTE Prophylaxis will be ordered: Yes PG Care Time/CCT Total # of Minutes Spent Total Time Spent with Patient: Total time spent is greater than 50% in coordination of care (as documented) at patient's floor/unit and/or counseling patient:
[2019-02-19] MEDS ORDERED: OPTIRAY 320 125ml IV PRN (14:29)
--- NOTE | 2019-02-19 14:43 | CT Scan Report ---
CT ANGIOGRAPHY OF THE CHEST, PULMONARY EMBOLUS PROTOCOL CLINICAL HISTORY: Chest pain. Difficulty breathing. COMPARISON STUDY: Chest CT July 15, 2012. Chest radiograph performed earlier today. TECHNIQUE: Following IV administration of 120 mL of Optiray-320, helical axial images of the chest we re obtained utilizing the pulmonary embolus protocol. Maximal intensity projections and sagittal and coronal reformats were viewed on an independent 3D workstation. IV contrast was administered withou t complication. Automated exposure control was utilized for the study. A dose lowering technique wa s utilized adhering to the principles of ALARA. CT DOSE: 284.81 mGy.cm FINDINGS: No pulmonary emboli are identified. There is no evidence of thoracic aortic dissection. Th e size of the heart is normal. No pericardial effusion. No enlarged axillary, mediastinal or hilar ly mph nodes are present. Bilateral breast implants are noted. Central airways are patent. There is no c onsolidation. There are no pulmonary nodules. No pneumothorax or pleural effusion is noted. There are multiple old left rib fractures. Upper abdomen is unremarkable. IMPRESSION: 1. No pulmonary emboli identified. 2. No acute intrathoracic findings Electronically signed by: Mahendra Sevilla M.D. 02/19/2019 2:42 PM
[2019-02-19] MEDS ORDERED: ZOLPIDEM TARTRATE 5 MG TAB PO PRN (14:49)
[2019-02-19] MEDS ORDERED: MAGNESIUM HYDROXIDE SUSP 30 ML UDC PO PRN (14:49)
[2019-02-19] MEDS ORDERED: POLYETHYLENE (MIRALAX) 17 GM PACK PO PRN (14:49)
[2019-02-19] MEDS ORDERED: LORazepam 0.5 MG/1 ML VIAL IV PRN (14:49)
[2019-02-19] MEDS ORDERED: ALUMINUM/MAGNESIUM SUSP 30 ML UDC PO PRN (14:49)
[2019-02-19] MEDS ORDERED: ACETAMINOPHEN 325 MG TAB PO PRN (14:49)
[2019-02-19] MEDS ORDERED: CETIRIZINE HCL 10 MG TABLET PO PRN (14:49)
[2019-02-19] MEDS ORDERED: INFLUENZA VIRUS QUAD VACCINE 0.5 ML SYR IM ONE (15:15)
[2019-02-19] MEDS ORDERED: INFLUENZA ADMINISTRATION CHARGE ONE (15:15)
[2019-02-19] MEDS: ENOXAPARIN INJ 40 MG/0.4 ML SYR SQ SCH (15:55)
[2019-02-19] MEDS: LORazepam 0.5 MG TAB PO PRN ×2 (18:06→23:10)
[2019-02-20] MEDS: LORazepam 0.5 MG TAB PO PRN ×4 (04:21→17:34)
[2019-02-20] MEDS ORDERED: FLUOXETINE HCL 10 MG CAP PO SCH (09:00)
--- NOTE | 2019-02-20 15:18 | Psychiatric Consultation ---
Date of Consultation February 20, 2019 Impression / Recommendations Impression RECOMMENDATIONS: 02/20 - Symptoms seem rather consistent with acute onset anxiety/panic attacks - Recommend titration of fluoxetine to 20mg daily. Risks, benefits, and potential side effects were reviewed with the patient who is agreeable. - Seems an appropriate candidate to continue lorazepam prn for acute episodes of anxiety/panic - consider providing a limited supply on discharge. Abuse potential and side effects of the medication were reviewed with the patient during consultation. - Seems appropriate to at least discuss HRT given family history of similar complaints during perimenopausal period, defer to OBGYN - Pt denies SI/HI, SIB, A/V hallucinations, paranoia, and other symptoms of acute psychosis - no criteria to suggest inpatient psychiatric admission is necessary - Appreciate the opportunity to participate in the care of this patient Dr. Kulwinder Hale was directly involved in review and discussion of the patient's case and participated in medical decision making regarding treatment recommendations. Risk Factors Assessment Do You Have Access To A Gun?: Yes Psych History Identifying Data 54-year-old female admitted medically on 02/19/19 for acute dyspnea with medical work-up to determine etiology. Cardiac and pulmonary etiology reportedly unlikely. Psychiatric consultation requested to evaluate patient for anxiety and "passive SI." Information is gathered from hospital documentation and the patient herself, the combination of which is considered reliable. Chief Complaint "I'm doing a lot better now. With the Ativan, it has taken the anxiety down a lot." History of Present Illness Elizabeth Rubin is a 54-year-old female admitted medically on 02/19/19 due to reports of acute dyspnea and intermittent dizziness that began about 2 months prior to admission. In the last 2 weeks, the patient reports worsening of symptoms with episodes of generalized weekend ans chest tightness. Pt presented to the ED on 02/14/19 for similar concerns, having been discharged home after work-up was normal. Pt presented again on 02/19/19, verbalizing she did not feel as though she could be discharged home. On this presentation, the verona ent's O2 abruptly dropped to 84% with associated dyspnea. She was admitted to rule out cardiac and pulmonary etiology. Psychiatric consultation was requested as etiology related to anxiety is also being considered. We were also requested to evaluate for "passive SI" stated in the ED. Pt states that she is "doing better" and has noticed improvement in symptoms. She shares with this provider that she has been experiencing vague symptoms of "dizziness and feeling like something was stuck in my throat" for the past two months. She states, "2 weeks ago it felt like everything compounded." She states she has been experiencing symptoms of chest tightness, difficulty swallowing, feeling shaky, weakness in the legs, and dry mouth. Pt states that her mother experienced similar concerns, "had a nervous breakdown", when she was perimenopausal and benefitted from HRT. Pt questions if she is having similar symptoms as well. Pt is cooperative with psychiatric evaluation. She admits that she has not had previous struggles with anxiety, but admits to history of depression. Pt states she was initiated on fluoxetine 19 years ago, after the of her youngest son. She remained on the medication for 10 years and then weaned herself off of it. She states the medication was restarted 4 years later after the loss of a favored horse. She admits to resuming the medication again in the past month. Pt denies history of side effects related to the medication in the past. Pt is agreeable to titration of the medication in order to target anxiety. She admits that lorazepam has been effective for acute anxiety during this admission. We reviewed "passive SI" stated in the ED. Pt clarifies that she was concerned that she would be sent home, and needed to ensure that staff understood she was not comfortable. She states, "It wasn't that I was planning to do anything, but I just thought, 'If someone were to tell me I had to feel like this for the rest of my life, I could certainly understand how people want to kill themselves'. But, to be honest, that thought scared me." Pt states she was comforted to know she was being admitted, and has bound even more comforted to learn a possible etiology for her symptoms. Pt denies SI, HI, SIB, A/V hallucinations, paranoia, silas/hypomania, other symptoms more suggestive of a bipolar presentation, OCD, PTSD, eating disorder, and other specific psychiatric symptoms. Past Psychiatric History Previous Psych History: Denies Outpatient Services: Denies Previous Psych Admissions: Denies Do You Have Access To A Gun?: Yes History of Previous Suicide Attempt: No Past Medication Trials: Pt has only been prescribed fluoxetine 10mg - taking it on and off for the past 19 years Allergies Allergy/AdvReac Type Severity Reaction Status Date / Time No Known Allergies Allergy Unverified 02/19/19 09:18 Home Medications Home Medications Medication Instructions Recorded Confirmed Type cetirizine [Zyrtec] 10 mg PO DAILY PRN 02/14/19 02/19/19 History fluoxetine 10 mg PO QAM 02/19/19 02/19/19 History Family History Mother also experienced anxiety/depression at a perimenopausal age Substance Abuse History Pt denied; however, H&P suggests patient has been utilizing whiskey for the past month to assist with anxiety. Personal History Living Arrangements: Home (on a farm with and youngest son) Childhood: Born and raised in [place]. 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 Pt is appropriately dressed in hospital gown. She is wearing corrective lenses on her head. Hair appearing clean and well groomed. Level of grooming and hygiene appear adequate. Eye Contact: good eye contact Motor Behavior: steady gait and station and no abnormal motor movements Speech: normal rate/rhythm/volume of speech Affect: + anxious affect and mood congruent with affect Mood: + anxious mood Thought Process: goal directed thought process, linear/logical thought process, clear/coherent thought process and thought association intact Thought Content: reality based without delusions; no hopelessness Suicidal Thoughts: denies suicidal thoughts, denies suicidal plan and denies suicidal intent Homicidal Thoughts: denies homicidal thoughts Hallucinations: no auditory hallucinations and no visual hallucinations Cognition: remote memory grossly intact, attention grossly intact and language grossly intact Estimated Intelligence: + below average estimated intelligence and + above average estimated intelligence Insight: good insight Judgement: good judgement Vital Signs (Past 24 Hours): Last Vital Signs Temp 36.7 C 02/20/19 12:29 Pulse 66 02/20/19 13:57 Resp 18 02/20/19 12:29 BP 120/80 02/20/19 12:29 Pulse Ox 96 02/20/19 12:29 Review of Systems Constitutional: reports mild fatigue Cardiovascular: reports mild chest tightness is persisting Respiratory: denied Gastrointestinal: denied Neurological: denied Psychiatric: denies symptoms other than stated above Total of at least 10 systems reviewed, pertinent positives as above and in HPI. Results & Data Medications Administered Enoxaparin Sodium (Lovenox) 40 mg SQ Q24H [facility] Stop: 03/21/19 15:59 Last Admin: 02/19/19 15:55 Dose: Not Given Documented by: [id number] Fluoxetine HCl (Prozac) 10 mg PO QAM PIPPA Stop: 03/22/19 08:59 Last Admin: 02/20/19 07:56 Dose: 10 mg Documented by: [id number] Ioversol (Optiray 320 125ml) 120 ml IV ONCE PRN PRN Reason: Interaction Checking Stop: 02/23/19 14:28 Last Admin: 02/19/19 14:29 Dose: 120 ml Documented by: [id number] Lorazepam (Ativan) 0.5 mg PO Q4H PRN PRN Reason: Anxiety Stop: 03/21/19 17:20 Last Admin: 02/20/19 13:31 Dose: 0.5 mg Documented by: [id number] Admin: 02/20/19 09:08 Dose: 0.5 mg Documented by: [id number] Admin: 02/20/19 04:21 Dose: 0.5 mg Documented by: [id number] Admin: 02/19/19 23:10 Dose: 0.5 mg Documented by: [id number] Admin: 02/19/19 18:06 Dose: 0.5 mg Documented by: [id number] Coding Level of Care Code 70634 [facility] Intl Hosp Care Lvl 3
[2019-02-20] MEDS: ENOXAPARIN INJ 40 MG/0.4 ML SYR SQ SCH (16:53)
--- NOTE | 2019-02-20 18:43 | History & Physical Report ---
Date of Service February 20, 2019 Assessment & Plan (1) Perimenopausal vasomotor symptoms: (2) Insomnia: discussed with pt risks of hrt as noted above. she would like to trial. discussed transdermal E2 benefits and with her h/o superficial thrombophlebitis would rec over po if she think she can trial. she agrees. fsh was 71, not definitive so rec condoms. will add estradiol patch now and plan climara pro 0.045mg/.015mg (its a combo estrogen and progesterone patch). 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 Office visit as outpt set up for her with Dr. Jenkins on 03/05/19 at 11:15am in followup for starting HRT. Spoke with attending and reviewed plan briefly. I am not concerned with her having unopposed estrogen until she can fill the climara pro and if that is not covered she will call on saturday and we will plan e2 patch and oral progesterone (i had reviewed such with patient). recalled pt and reviewed all again over the phone, pt in agreement with plan History of Present Illness Chief Complaint: hot flashes and insomnia Primary Care Provider: MILTON Reza 54yo with cc as noted who I am asked to see on consult by Dr. Bloom. 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 Up to date on dinkey engine firer/fireman care and mammography. She notes last menses july 2018 and prior menses 07/07 and 01/07. She notes menopause for women in her family is this age approximately. She works on a farm and very active. She has had h/o PPD but otherwise usually well and healthy. She then began having increased hot flashes and poor sleep that escalated about 2 months ago. She thought this might be helped by SSRI and was on Prozac (med which helped her with her PPD). She began to have more and more anxiety and then had an escalation of her anxiety last saturday. She came in with SOB, dizziness. She says she talked to her mom about her symptoms and her mom brought to her attention that she had the same issues with menopause transition. Her mom used HRT and it helped. I was called by hospitalist to talk to patient about this as option for mgmt. Has had fsh that is 71. Uses condoms for control. She is willing to accept risk for benefit. Risks of hrt reviewed to include but not limited to cva, mi, dvt, pe, , breast cancer. She does have h/o superficial thrombophlebitis but no h/o DVT. Allergies Allergy/AdvReac Type Severity Reaction Status Date / Time No Known Allergies Allergy Unverified 02/19/19 09:18 Home Medications Home Medications Medication Instructions Recorded Confirmed Type cetirizine [Zyrtec] 10 mg PO DAILY PRN 02/14/19 02/19/19 History estradiol-levonorgestrel [Climara 1 patch TOPICAL .Weekly #4 ea 02/20/19 Rx Pro] fluoxetine 20 mg PO QAM #0 tab 02/20/19 02/19/19 Rx lorazepam 0.5 mg PO Q12H PRN #2 tab 02/20/19 Rx Patient History Medical History Insomnia Perimenopausal vasomotor symptoms Collapsed lung (Resolved) Dyslipidemia Depression with anxiety Seasonal allergies Bilateral breast implants (Resolved 07/15/12) Family History Other No pertinent family history in first degree relatives Social History Preferred Language: Gambian Communication Ability: Effective 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 marital status: single Current Living Situation: Spouse current occupational status: unemployed Feels Safe at Home: Yes Smoking Status: Never smoker Hx Alcohol Use: No Hx Substance Use: No Review of Systems + insomnia + dizziness + heat intolerance + night sweats Physical Exam Constitutional: WD/WN, vitals as above Neurologic: grossly normal Psychiatric: A+Ox3, euthymic affect Eye Contact: good eye contact Results & Data Vital Signs (Past 12 Hours) Vital Signs Temp Pulse Pulse Resp BP Pulse Ox 02/20/19 13:57 66 02/20/19 12:29 98.1 F 76 18 120/80 96 02/20/19 10:08 82 02/20/19 08:05 98.2 F 90 20 111/73 98 Code Status & VTE Plan VTE Prophylaxis Plan VTE Prophylaxis will be ordered: Yes
[2019-02-20] MEDS ORDERED: ESTRADIOL 0.05 MG TD SCH (19:00)
[2019-02-20] MEDS ORDERED: ATIVAN 1MG HOMEPACK PO PRN (19:08)
--- NOTE | 2019-02-20 19:44 | Discharge Summary ---
Date of Service February 20, 2019 Admission HPI Per Admitting Provider Elizabeth Rubin is a 54-year-old female admitted medically on 02/19/19 due to reports of acute dyspnea and intermittent dizziness that began about 2 months prior to admission. In the last 2 weeks, the patient reports worsening of symptoms with episodes of generalized weekend ans chest tightness. Pt presented to the ED on 02/14/19 for similar concerns, having been discharged home after work-up was normal. Pt presented again on 02/19/19, verbalizing she did not feel as though she could be discharged home. On this presentation, the patient's O2 abruptly dropped to 84% with associated dyspnea. She was admitted to rule out cardiac and pulmonary etiology. Psychiatric consultation was requested as etiology related to anxiety is also being considered. We were also requested to evaluate for "passive SI" stated in the ED. Pt states that she is "doing better" and has noticed improvement in symptoms. She shares with this provider that she has been experiencing vague symptoms of "dizziness and feeling like something was stuck in my throat" for the past two months. She states, "2 weeks ago it felt like everything compounded." She states she has been experiencing symptoms of chest tightness, difficulty swallowing, feeling shaky, weakness in the legs, and dry mouth. Pt states that her mother experienced similar concerns, "had a nervous breakdown", when she was perimenopausal and benefitted from HRT. Pt questions if she is having similar symptoms as well. Pt is cooperative with psychiatric evaluation. She admits that she has not had previous struggles with anxiety, but admits to history of depression. Pt states she was initiated on fluoxetine 19 years ago, after the of her youngest son. She remained on the medication for 10 years and then weaned herself off of it. She states the medication was restarted 4 years later after the loss of a favored horse. She admits to resuming the medication again in the past month. Pt denies history of side effects related to the medication in the past. Pt is agreeable to titration of the medication in order to target anxiety. She admits that lorazepam has been effective for acute anxiety during this admission. We reviewed "passive SI" stated in the ED. Pt clarifies that she was concerned that she would be sent home, and needed to ensure that staff understood she was not comfortable. She states, "It wasn't that I was planning to do anything, but I just thought, 'If someone were to tell me I had to feel like this for the rest of my life, I could certainly understand how people want to kill themselves'. But, to be honest, that thought scared me." Pt states she was comforted to know she was being admitted, and has bound even more comforted to learn a possible etiology for her symptoms. Pt denies SI, HI, SIB, A/V hallucinations, paranoia, silas/hypomania, other symptoms more suggestive of a bipolar presentation, OCD, PTSD, eating disorder, and other specific psychiatric symptoms. Admission Exam Per Admitting Provider GENERAL : No acute distress EYES: No icterus, gaze conjugate NOSE: No evidence of epistaxis MOUTH: No lesions or candidiasis, mucosa moist NECK: Supple LUNGS: CTA B/L, no wheezes, rales or rhonchi HEART: Regular, rate controlled ABDOMEN: Soft, NT, ND, BS Present EXTREMITIES: No LE edema, pedal pulses intact NEURO: A&OX3 Patient appears to be very anxious Principal Diagnosis Perimenopausal vasomotor symptoms Generalized anxiety disorder Panic attacks Discharge Exam Constitutional WD/WN, vitals as above Eyes PERRL and EOM intact bilaterally; no nystagmus ENMT external ear and nose normal, oropharynx normal Neck trachea midline, no thyromegaly Respiratory normal respiratory effort, lungs clear to auscultation Cardiovascular RRR, no murmur, no edema Gastrointestinal (Abdomen) normal bowel sounds, soft, nontender, no hepatosplenomegaly Musculoskeletal no cyanosis or clubbing, extremities motor strength 5/5 Skin no rashes, warm and dry Neurologic moves all extremities and awake; no focal motor deficits and not confused Speech / Cognition: normal speech Motor/Sensory: no tremor, no pronator drift and no sensory deficit Cranial Nerves: sense of smell intact, PERRL, normal accommodation, EOM intact bilaterally, normal facial strength, tongue midline, normal hearing, able to rotate head bilaterally, able to elevate shoulders bilaterally, no nystagmus and symmetric palate elevation Gait: no ataxic gait and no wide-based gait Coordination: normal [id number] test and normal [id number] test Psychiatric Orientation: alert, oriented x 3 and cooperative Apperance: appropriately dressed Eye Contact: good eye contact Motor Behavior: no psychomotor agitation, no psychomotor retardation and n tremor Mood: + anxious mood Discharge Data Allergies Allergy/AdvReac Type Severity Reaction Status Date / Time No Known Drug Allergies Allergy Verified 02/23/19 15:39 Consultations 02/19/19 13:32 ED Decision to Admit Stat 02/20/19 08:06 Consult Psychiatry Routine 02/20/19 11:28 Consult Gynecology Routine Ordered Studies 02/19/19 13:33 CT angio chest PE protocol Stat Hospital Course (1) Generalized anxiety disorder with panic attacks: 54 year old female with known generalized anxiety disorder (on and off prozac for years) presents to the ER for a second time with multiple generalized bilateral complaints (generalized fatigue, insomnia, anxiety, body aches). She did have an hypoxic episode on exertion in the ER therefore was observed overnight however has been on room air since and no longer having any hypoxia on exertion. Routine lab work including B12 levels did not reveal a particular cause of this. CT of your lungs and chest XR were also normal. She has only been getting one hour of sleep and has been pacing up and down the kitchen in order to try and work through these episodes. She reports her mother went through a "mental breakdown" when she went through menopause and hormone replacement therapy significantly helped her symptoms. She was reviewed by psychiatry which admitted and recommended increasing Prozac to 20mg and as needed lorazepam (homepak prescribed for use over the weekend). PDMP was reviewed with no prior controlled substances. I agree even if her underlying issue is perimenopause, she has a lot of current anxiety and panic attacks that also need managing at least in the short term but I do suspect perimenopause is contributing a lot towards her symptoms right now. Since her symptoms were particularly severe and feels she was fearful about going home I discussed with Dr Oakes who was able to see the patient the same day, start hormone replacement therapy after discussion of benefits and risks and book follow up appointment with her regular piece work checker Dr Jenkins. (2) Perimenopausal vasomotor symptoms: (3) Insomnia: Sleep hygiene, hopefully treatment of vasomotor perimenopausal symptoms will help. Advised her against routine use of lorazepam for sleep. Total Time Total Time Spent Total Time Spent (In Minutes): 55 Total Time Includes: Examination of the Patient, Discharge Planning, Medication Reconciliation and Communication With Other Providers (Dr Oakes) Discharge Plan Discharge Items Patient Disposition: Home - Self-Care Reason For Visit: SOB, ANXIETY Discharge Diagnosis: Perimenopausal vasomotor symptoms Generalized anxiety disorder Panic attacks Condition on Discharge: Good Activity: Resume your previous activity Non-emergency contact: Primary Care Provider and Archives Specialist Call non-emergency contact if: you have any medication questions and your symptoms worsen Follow-up/Referrals: Mattie Akbar CRNP [Primary Care Provider] - 02/23/19 3:30 pm (Please, follow up at MILTON Akbar's office with her associate, Nimco Garza PA-C, on SaturdayFebruary 23 at 3:30 pm. *If you need to change this appointment, call their office at [phone].) Selma Jenkins MD [Physician] - 03/05/19 11:15 am (Please, follow up at [facility] OB&COMPUTER INFORMATION SCIENCE PROFESSOR Office with Dr. Selma Jenkins on March 05 at 11:15 am. *If you need to change this appointment, call the office at [phone].) Diet: Regular Addtl Attending Provider Instructions: You were observed overnight in hospital due to ongoing problems with generalized fatigue, insomnia, anxiety, body aches. Routine lab work including B12 levels did not reveal a particular cause of this. CT of your lungs and chest XR were also normal. On further discussion and positive family history of severe symptoms related to menopause, suspect the cause of your symptoms is perimenopause (FSH levels are supportive of this diagnosis) making your underlying anxiety severe. You were reviewed by psychiatry and gynecology while admitted due to the severity of your symptoms and we will increase Prozac to 20mg daily and start on hormone replacement therapy. You have been prescribed a home pack lorazepam (take half a pill every 12 hours as needed) to be used if having a severe panic attack. Please follow up with your primary care provider regarding your anxiety and piece work checker for hormone replacement therapy (appointment above). Pending Studies at Discharge: No Stand-Alone Forms: My [facility] [employer], Smoking Cessation Medications and DC Order Prescriptions: New Climara Pro 0.045-0.015 mg/24 hr patch weekly 1 patch topical .Weekly Qty: 4 RF: 0 Discontinued fluoxetine 10 mg tablet 10 mg PO QAM RF: 0 No Action multivitamin tablet 1 tab PO DAILY RF: 0 lorazepam 0.5 mg tablet 0.5 mg PO Q12H PRN (Reason: anxiety) Qty: 30 RF: 0 Discharge Orders: Discharge Order (Routine); Ordered 02/20/19 Ordered By: Keyur Bloom Admission Data Admit Date/Time: 02/19/19 12:56 Attending Provider: Keyur Bloom Admit Provider: Andrew Bhardwaj Primary Care Provider: Mattie Akbar Other Providers: Andrew Bhardwaj ; Priya Sun ; Sagrario Oakes Other Interventions: Discharge Summary Assessment (RN) Last Done: 02/20/19 18:45 DC Date/Time DO NOT enter until pt leaves facility: 02/20/19 20:18
[2019-02-21] MEDS ORDERED: [UNRECOGNIZED DRUG - REMARK] SCH
[2019-02-21] MEDS ORDERED: FLUOXETINE HCL 10 MG CAP PO SCH (09:00)
[2019-02-27] MEDS ORDERED: [UNRECOGNIZED DRUG - OTHER] SCH (18:55)
== END 2019-02-20 20:18 | disposition home or self-care (01) ==
LOC: 2N 08:37 → ED 08:37 → SUATTDRO 12:56 → 2N 13:44